=== PATIENT | male | born 1940 | race Caucasian/White ===

== ENCOUNTER 2017-08-28 09:28 | Emergency (ER) | payer MEDICARE ==
[2013-12-22 10:30] VITALS: BMI 27.1
[~2017-08-28 09:28] MED LIST: BAYER CHEWABLE81 MG PO; CELEXA20 MG PO; CLARITIN 10 MG10 MG PO; GLUCOPHAGE500 MG PO; MUCINEX1200 MG/BO PO; PLAVIX75 MG PO; PRILOSEC20 MG PO; REQUIP5 MG PO; SPIRIVA18 MCG INH; SYMBICORT 16010.2 GM INH; ULTRAM50 MG PO; WELLBUTRIN75 MG PO; ZOCOR40 MG PO
[2017-08-28 10:00] LABS: BASOPHILS 0.2 % (0-2); EOSINOPHILS 2.5 % (0-7); HEMATOCRIT 39.8 % (42.0-54.0); HEMOGLOBIN 13.3 g/dL (13.5-17.5); IMMATURE GRANULOCYTES 0.7 % (0-5); LYMPHOCYTES 7.7 % (15-50); MCH 30.1 pg (26.0-34.0); MCHC 33.4 g/dL (31.0-37.0); MEAN PLATELET VOLUME 8.6 fL (7.4-10.4); MONOCYTES 9.4 % (2-11); NEUTROPHILS 79.5 % (40-80); RBC 4.42 10x6/uL (4.20-6.10); RDW 13.4 % (11.5-14.5); WBC 13.7 10x3/uL (4.8-10.8)
[2017-08-28 10:01] LABS: PLATELET COUNT 303 10x3/uL (130-400)
[2017-08-28 10:14] LABS: ALBUMIN 2.4 g/dL (3.4-5.0); ALKALINE PHOSPHATASE 65 U/L (46-116); ALT (SGPT) 38 U/L (10-68); BILIRUBIN - TOTAL 0.57 mg/dL (0.2-1.3); CALC OSMOLALITY 267 mosm/kg (275-300); CALCIUM 8.4 mg/dL (8.5-10.1); CARBON DIOXIDE 25.8 mmol/L (21.0-32.0); CHLORIDE - SERUM 98 mmol/L (98-107); CREATININE - SERUM 0.9 mg/dL (0.6-1.3); GLUCOSE 108 mg/dL (74-106); POTASSIUM - SERUM 4.1 mmol/L (3.5-5.1); PROTEIN - SERUM 7.2 g/dL (6.4-8.2); SODIUM 132 mmol/L (136-145); UREA NITROGEN 18 mg/dL (7-18); eGFR NON AFRICAN AMERICAN 87 mL/min (90-120)
[2017-08-28 10:57] LABS: APPEARANCE HAZY (CLEAR); BACTERIA FEW /hpf (NONE SEEN); BILIRUBIN NEGATIVE (NEGATIVE); COLOR YELLOW (YELLOW); EPITHELIAL CELLS 0-5 /hpf (0-5); GLUCOSE NEGATIVE (NEGATIVE); KETONE NEGATIVE (NEGATIVE); MUCUS <1+ /lpf (NONE SEEN); NITRITE NEGATIVE (NEGATIVE); PROTEIN NEGATIVE (NEGATIVE); RED CELLS - URINE 25-50 /hpf (0-5); UROBILINOGEN NORMAL (NORMAL); WHITE CELLS - URINE 0-5 /hpf (0-5)
== END 2017-08-28 15:10 | disposition home or self-care (01) ==
LOC: D.ER 09:28
PROVIDERS: Emergency Medicine
DX: R10.9 Unspecified abdominal pain (principal); N39.0 Urinary tract infection, site not specified; N40.0 Benign prostatic hyperplasia without lower urinary tract symptoms; J44.9 Chronic obstructive pulmonary disease, unspecified; I10 Essential (primary) hypertension; F17.200 Nicotine dependence, unspecified, uncomplicated

== ENCOUNTER 2017-09-06 10:01 | Inpatient (IN) | payer MEDICARE ==
[2017-09-06] VITALS (11 sets, daily range): BP systolic 90–136; BP diastolic 34–88; BMI 23.2
[~2017-09-06] VITALS: Ht 167.6 cm; Wt 55.5 kg
--- NOTE | ~2017-09-06 | TEE ---
PATIENT:LINDSAY LI MEDICAL RECORD: [id number] LOCATION:D.M2 D.210 AGE OF PATIENT: 77 ADMISSION DATE: 09/06/17 SEX: M REFERRING PHYSICIAN: INTERPRETING PHYSICIAN: GIULIANO SALVADOR MD TRANSESOPHAGEAL ECHOCARDIOGRAM LAURENCE CHARGE Y INDICATIONS: ASSESS MASS IN RIGHT VENTRICLE PREMEDICATIONS: PATIENT'S RESPONSE PROCEDURE DOPPLER MEASUREMENTS: LVIT LA PA 105 RA LVOT 102 RVOT 67 Asc. Ao 127 AV Gradient Peak 6.42 AV Mean 3.337 AV Area 2.8 MV Gradient Peak 3.29 MV Mean 1.48 MV Area INTERPRETATION: Doppler: 2-D: MASS IS RV COLOR FLOW DOPPLER TRACE TR/TRACE/MILD AI NORMAL SALINE STUDY: MISCELLANOUS: DIAGNOSIS: PLAN: Stoker Installer:3 Dr. Padilla [employer] Crewmember: Lino VOGT COMMENTS: DATE OF SERVICE: 09/16/2017 PROCEDURE: Transesophageal note DESCRIPTION OF PROCEDURE: After general sedation via TIVA via anesthesia, transesophageal Omniplane probe was placed into the esophagus and proximal stomach without difficulty. FINDINGS: Normal LV wall thickness, wall motion. EF is greater than 55%. TRANSESOPHAGEAL ECHOCARDIOGRAM REPORT [id number] LINDSAY LI Aortic valve is tricuspid with adequate valve excursion. Mild AI by color flow imaging. Left atrium appears grossly of normal dimensions. Mitral valve appears normal with no prolapse. Mild MR. Right-sided chambers, right atrium appears of normal dimensions. Tricuspid valve appears normal with trivial TR. Note is made of a large pedunculated mass in RV apex with some areas that are freely mobile. TRANSINT:[id number] Voice Confirmation ID: [id number] DOCUMENT ID: [id number] at 1219 CC: [id number] DICTATION DATE: 09/16/17 1330 LIFE INSURANCE AGENT: 09/16/17 1421 ADM IN [place] [id number] [place] [address]
--- NOTE | ~2017-09-06 | EC ---
PATIENT:LINDSAY LI DATE OF SERVICE: 09/06/17 SEX: M MEDICAL RECORD: [id number] DATE OF : 38 LOCATION:D.M2 D.210 AGE OF PATIENT: 77 ADMISSION DATE: 09/06/17 REFERRING PHYSICIAN: INTERPRETING PHYSICIAN: GIULIANO SALVADOR MD ECHOCARDIOGRAM REPORT ECHO CHARGES 4 ECHO COMPLETE CLINICAL DIAGNOSIS: ELEVATED TROPONIN HX OF CAD/STENTS ECHOCARDIOGRAPHIC MEASUREMENTS (adult normal given) AC root (d.<3.7cm) 3.5 cm LV Septum d (<1.2 cm> 1.4 cm Valve Excursion 2.2 cm LV Septum (systole) 1.8 cm Left Atria (s.<4.0cm> 3.9 cm LVPW d(<1.2cm) 1.3 cm RV (d.<2.3cm) 3.0 cm LVPW (sytole) 1.7 cm LV diastole(<5.6CM) 5.0 cm MV E-F(>70mm/sec) cm LV systole 3.2 cm LVOT Diameter 2.1 cm MV exc.(>10mm) cm Est.ejection fraction (50-75%) % Pericardial Effusion N DOPPLER: LVIT cm/sec A 84.0 cm/sec E 69.0 cm/sec LA cm/sec RVSP 25 mmHg LVOT 102 cm/sec AOP1/2T 4.56 m/s Asc. Ao 127 cm/sec RVOT 67 cm/sec RA cm/sec PA 105 cm/sec AV Gradient Peak 6.42 mmHg AV Mean 3.337mmHg AV Area 2.8 cm MV Gradient Peak 3.29 mmHg MV Mean 1.48 mmHg MV Area cm COMMENTS: Learning And Development Coordinator: 2 BAKARI VOGT Hand Bulldozer: 3 Dr. Padilla TAPE# PACS DATE OF SERVICE: 09/07/2017 Adequate 2D echo, color flow and spectral Doppler, and M-mode. Borderline LVH. LV internal dimension is normal. Wall motion is normal. EF is greater than 55%. Aortic valve is tricuspid. No evidence of stenosis on Doppler interrogation. Left atrium is normal at 3.9 cm. Mitral valve shows no prolapse. Trace MR. Right-sided chamber is grossly normal. Trace TR. Large mass in the RV appears to be attached to the right ventricular septum and possibly the apex. This appears more tissue disease than clot, would recommend LAURENCE if clinically indicated. ECHOCARDIOGRAM REPORT [id number] LINDSAY LI TRANSINT:[id number] Voice Confirmation ID: [id number] DOCUMENT ID: [id number] 09/16/2017 Edited to correct date of service, dmm. GIULIANO SALVADOR MD at 1219 CC: [id number] DICTATION DATE: 09/08/17 112 SUPERINTENDENT TRANSPORTATION: 09/08/17 1131 ADM IN [place] [place] [address]
--- NOTE | ~2017-09-06 | CN ---
PATIENT NAME:LINDSAY LI MEDICAL RECORD: [id number] : 38 LOCATION:MISTYD.2301 ADMIT DATE: 09/06/17 ACCOUNT: [id number] CONSULTING PHYSICIAN: GIULIANO SALVADOR MD REFERRING PHYSICIAN: SIERRA ORTIZ MD DATE OF CONSULTATION: 09/07/2017 HISTORY OF PRESENT ILLNESS: A 77-year-old gentleman with a known history of coronary artery disease, status post intervention via Dr. De La Paz. He has a 2-week history of progressive dyspnea on exertion to the point of roshan rest symptomatology to the point he cannot go the restroom without getting short of breath. He was noted to have elevated cardiac enzymes as well, abnormal CT with diffuse infiltrates, possible pulmonary fibrosis as well as paraaortic and paratracheal lymphadenopathy. We are asked to see him concerning his cardiovascular status. PAST MEDICAL HISTORY: Includes: 1. History of obstructive pulmonary disease. 2. Coronary artery disease as described above. 3. Dyslipidemia. 4. Gastroesophageal reflux disease. MEDICATIONS: Include Prilosec 20 mg p.o. daily, Symbicort two puffs b.i.d., Wellbutrin 25 b.i.d., tramadol 50 t.i.d., Celexa 20 daily, aspirin 81 daily, simvastatin 40 daily, Plavix 75 daily. ALLERGIES: None known. SOCIAL HISTORY: He quit smoking over 20 years ago. Before current illness, he reports he was able to take care of his ADLs and walk frequently. REVIEW OF SYSTEMS: The patient reports easy bruising but reports no swollen glands. The patient reports no fever, no night sweats, no significant weight gain, no significant weight loss. No significant exercise tolerance. The patient reports no dry eyes, no irritation, no vision change. Patient reports no difficulty hearing and no ear pain. Patient reports no frequent nose bleeds or nose and sinus problems. Patient reports on arm pain on exertion. No shortness of breath while lying down. No history of heart murmur. Patient reports no cough, no wheezing or coughing up blood. Patient reports no abdominal pain, no vomiting. Normal appetite. No diarrhea and not vomiting blood. No nausea and no constipation. Patient reports no incontinence. No difficulty urinating. No hematuria. No increased frequency. Patient reports no muscle aches. No weakness, no arthralgias, no back pain. No swelling of the extremities. Patient reports no abnormal mole, no jaundice, no rashes. Reports no loss of consciousness. No weakness and no numbness. No seizures, dizziness, or headaches. The patient reports no depression, no sleep disturbance, feeling safe in a relationship and no alcohol abuse. Patient reports on fatigue. Reports no runny nose or sinus pressure. No itching, no hives, and no frequent sneezing. PHYSICAL EXAMINATION: GENERAL: Chronically ill looking gentleman, in no acute distress. VITAL SIGNS: Blood pressure 77/54, pulse 82 and regular. HEENT: Normocephalic, atraumatic. NECK: No bruits are noted. No JVD. CONSULT REPORT [id number] LINDSAY LI HEART: Regular, II/ systolic ejection murmur heard. LUNGS: Prolonged expiration phase with expiratory wheezes. ABDOMEN: Soft, nontender. EXTREMITIES: Pulses well preserved, 2+ with no edema. NEUROLOGIC: Grossly intact. Echocardiographic study is reviewed, mass is noted in the right ventricle, could be consistent with myxoma, but will need a LAURENCE at some point. In retrospect the patient does have some perhaps 15-20 pound weight loss over the past couple of months. May need to consider consultation for tissue diagnosis at some point. We will plan LAURENCE when pulmonary status improves. Thank you for the consultation. TRANSINT:[id number] Voice Confirmation ID: [id number] DOCUMENT ID: [id number] GIULIANO SALVADOR MD at 0817 CC: [id number] DICTATION DATE: 09/07/17 1201 CLINICAL RESEARCH TECH: 09/07/17 1402 ADM IN [place] [id number] [place] [address]
--- NOTE | ~2017-09-06 | HEMODYNAMI ---
PATIENT:LINDSAY LI MEDICAL RECORD: [id number] : 38 LOCATION:[facility] D.2101 ADMISSION DATE: 09/06/17 Generatedon:09/16/201714:02 Patient name: LINDSAY LI Patient #: [id number] SSN: : Date of study: 09/16/2017 Page: Of Hemodynamic Procedure Report Patient Data Patient Demographics Procedure consent was obtained First Name: LINDSAY Gender: Male Last Name: GUILLERMO : 1940 Patient #: [id number] Age: 77 year(s) Race: Unknown Additional ID: [id number] Contact details [address]: [address] [place] [address] State: [place] City: [place] Zip code: [address] Admission Admission Data Admission Date: 09/06/2017 Admission Time: 11:40 Arrival Date: 09/16/2017 Arrival Time: 11:04 Admit Source: Other Insurance Payor: Medicare Room #: D.2101 Height (in.): 66 BSA: 1.73 (m2) Height (cm.): 167.64 BMI: 22.92 (kg/m2) Weight (lbs.): 142 Weight (kg.): 64.41 Lab Results Lab Result Date: 09/16/2017 Lab Result Time: 0:00 Biochemistry Name Units Result Min Max BUN mg/dl 28 --(----)-* 7 18 Creatinine mg/dl 0.9 --(-*--)-- 0.6 1.3 CBC Name Units Result Min Max Hemoglobin g/dl 12.6 -*(----)-- 13.5 17.5 Procedure Procedure Types Cath Procedure Diagnostic Procedure LHC LHC w/Coronaries REAL Miscellaneous Procedures Moderate Sedation up to 45 minutes Procedure Description Procedure Date Procedure Date: 09/16/2017 Procedure Start Time: 13:40 Procedure End Time: 13:50 Procedure Staff Name Function Benoit Padilla MD Performing Physician Yaritza Begum RT Monitor Karley Porter RT Scrub Lia Thao RN Nurse Ashish Sarabia [employer] Supervisor Bernard Mcclure [facility] Additional personnel Procedure Data Cath Procedure Fluoroscopy Diagnostic fluoroscopy Total fluoroscopy Time: 1.1 time: 1.1 min min Diagnostic fluoroscopy Total fluoroscopy dose: 298 dose: 298 mGy mGy Contrast Material Contrast Material Type Amount (ml) Isovue 300 54 Entry Location Entry Primary Successful Side Size Upsize Upsize Entry Closure Succes sful Closure Location (Fr) 1 (Fr) 2 (Fr) Remarks Device Remarks Femoral Right 5 Fr Exoseal artery Estimated blood loss: 5 ml Diagnostic catheters Device Type Used For End Catheter Placement MULTIPACK JL 4.0 5Fr Left Coronary catheter Angiography MULTIPACK 3DRC 5Fr Right Coronary catheter Angiography MULTIPACK Pigtail 5 Fr LV Angiography catheter Procedure Complications No complications Procedure Medications Medication Administration Route Dosage Oxygen 15 l/min Refer to Anesthesia Notes for Sedation Medications Hurricaine [place] P.O. 1 Sprays Lidocaine 2% added to field 20 Heparin Flush Bag added to field 2 bags (1000units/500ml NS) 0.9% NaCl I.V. 100 ml/hr Hemodynamics Rest BSA: 1.73 (m2) HGB: 12.6 (g/dl) O2 Consumption: Estimated: 201.55 (ml/min) O2 Co nsumption indexed: Estimated:116.5 (ml/min/m) Heart Rate: 75 (bpm) Pressure Samples Time Site Value (mmHg) Purpose Heart Use Rate(bpm) 13:47 LV 85/-4,-1 Snapshot 96 Gradients Valve Time Site Site Mean SEP/DFP Peak To Heart Use 1 2 (mmHg) (sec/min) Peak Rate (mmHg) (bpm) Aortic 13:48 LV AO 90 Snapshots Pre Cath Intra NCS Post Cath Vital Signs Time Heart Resp SPO2 NIBP (mmHg) Rhythm Pain Sedation Rate (ipm) (%) Status Level (bpm) 12:52:49 75 11 97 123/65(90) NSR 0 (11) 10(A) , No pain 12:56:59 72 13 97 125/56(100) NSR 0 (11) 10(A) , No pain 13:01:07 76 23 98 129/62(106) NSR 0 (11) 10(A) , No pain 13:05:16 76 16 97 128/62(98) NSR 0 (11) 10(A) , No pain 13:09:28 74 16 96 126/60(100) NSR 0 (11) 10(A) , No pain 13:14:07 77 15 97 137/64(114) NSR 0 (11) 10(A) , No pain 13:18:19 77 16 98 135/66(110) NSR 0 (11) 9(A) , No pain 13:22:31 81 19 98 118/64(92) NSR 0 (11) 9(A) , No pain 13:26:41 75 16 99 101/49(77) NSR 0 (11) 9(A) , No pain 13:30:44 88 16 98 109/55(91) NSR 0 (11) 9(A) , No pain 13:34:48 91 16 97 109/58(81) NSR 0 (11) 9(A) , No pain 13:38:52 87 17 96 118/59(90) NSR 0 (11) 9(A) , No pain 13:43:04 86 17 97 99/46(70) NSR 0 (11) 9(A) , No pain 13:47:08 73 16 96 108/48(83) NSR 0 (11) 9(A) , No pain 13:51:11 94 17 97 94/59(81) NSR 0 (11) 9(A) , No pain 13:57:06 89 21 97 105/59(77) NSR 0 (11) 10(A) , No pain Medications Time Medication Route Dose Verified Delivered Reason Notes E ffectiveness by by 12:57:17 Oxygen NC- 15 Benoit Fitzgerald used for oxymizer l/min [facility] Edgard Thao RN procedure mask 12:57:25 Refer to Benoit Fitzgerald Anesthesia Notes St. Edgard Taho RN for Sedation MD Medications 13:17:50 Hurricaine [place] P.O. 1 Benoit Fitzgerald Per Sprays [facility]. Edgard Thao RN physician 13:34:54 Lidocaine 2% added to 20ml Benoit Laboy for local field vial [facility] anesthetic MD [place] 13:35:00 Heparin Flush added to 2 bags Benoit Laboy used for Bag field [facility] procedure (1000units/500ml MD [place] NS) 13:35:09 0.9% NaCl I.V. 100 Benoit Fitzgerald Per ml/hr [facility] Edgard Thao RN physician Procedure Log Time Note 12:18:50 Karley Porter RT(R) sent for patient. Start room use. 12:18:51 Time tracking: Regular hours 12:18:55 Plan of Care:Hemodynamics will remain stable., Cardiac rhythm will remain stable., Comfort level will be maintained., Respiratory function will remain adequate., Patient/ family verbilizes understanding of procedure., Procedure tolerated without complication., Recovers from procedure without complications.. 12:51:33 Patient received from Med II to CCL 2 Alert and oriented. Tansferred to table in Supine position. 12:51:34 Warm blankets applied, and marcia hugger turned on for patient comfort. 12:51:34 Correct patient and procedure confirmed by team. 12:51:36 Signed procedure consent form obtained from patient. 12:51:37 ECG and BP/O2 sat monitors applied to patient. 12:51:39 Vital chart was started 12:51:41 Baseline sample Acquired. 12:51:46 Rhythm: sinus rhythm 12:51:48 Full Disclosure recording started 12:51:58 H&P Date Dictated: 09/07/2017 Within 30 days and on chart., H&P Addendum completed by physician on day of procedure. (MUST COMPLETE FOR ALL OUTPATIENTS). 12:52:00 Pre-procedure instructions explained to patient. 12:52:01 Pre-op teaching completed and patient verbalized understanding. 12:52:03 Family in patients room. 12:52:05 Patient NPO since Midnight. 12:52:14 Is the patient allergic to Iodine/contrast media? No. 12:52:15 Was the patient premedicated? No 12:52:16 Is patient on blood thinner?No 12:52:18 Patient diabetic? No. 12:52:21 Previous problem with sedation/anesthesia? No ? 12:52:24 Snore? Yes 12:52:25 Sleep apnea? Yes 12:52:26 Deviated septum? No 12:52:27 Opens mouth fully? Yes 12:52:28 Sticks out tongue? Yes 12:53:18 Airway obstruction? Yes copd, emphysema, asthma, chronic bronchitis 12:53:21 Dentures? No ? 12:53:25 Pre procedure: right dorsailis pedis pulse 1+ Palpable, but thready & weak; easily obliterated 12:53:28 Pre procedure: left dorsailis pedis pulse 1+ Palpable, but thready & weak; easily obliterated 12:53:31 Patient pain scale 0/10 ?. 12:53:53 IV patent on arrival in right wrist with 0.9% NaCl at [facility]. 12:55:06 Lab Result : BUN 28 mg/dl 12:55:06 Lab Result : Hemoglobin 12.6 g/dl 12:55:06 Lab Result : Creatinine 0.9 mg/dl 12:55:25 Lab results completed and on chart. 12:55:42 Right groin area was prepped with chlora-prep and draped in sterile fashion 12:55:43 Alarms reviewed by R. N. 12:55:43 Sharps counted by scrub and verified by R.N. 12:56:26 Use device set Femoral Dx 12:56:27 ACIST Syringe (92341) opened to sterile field. 12:56:28 Bag Decanter (2002S) opened to sterile field. 12:56:29 Medline Cath Pack ([id number]) opened to sterile field. 12:56:29 SHEATH 5FR [place] (PBW722) opened to sterile field. 12:56:30 DIAGNOSTIC WIRE .035 260cm J wire ([id number]) opened to sterile field. 12:56:31 ACIST Hand Control (66841) opened to sterile field. 12:56:31 ACIST Manifold (73162) opened to sterile field. 12:56:32 DIAGNOSTIC Multipack 5Fr catheter set ([id number]) opened to sterile field. 12:56:33 Tegaderm 4 x 4 (1626W) opened to sterile field. 12:56:45 Admit Source: Other 12:56:48 Arrival Date: 09/16/2017 11:04:00 AM 12:57:02 Insurance Payor : Medicare 12:57:17 Oxygen 15 l/min NC- oxymizer mask was administered by Lia Thao RN; used for procedure; 12:57:25 Refer to Anesthesia Notes for Sedation Medications was administered by Lia Thao RN; ; 12:57:33 Patient Height : 66 inches 12:57:36 Patient Weight : 142 lbs 13:08:57 Bernard Mcclure Jr, CRNA present and monitoring patient for TIVA. 13:16:27 Physician arrived 13:16:28 --------ALL STOP TIME OUT------ 13:16:28 Final Timeout: patient, procedure, and site verified with staff and physician. All members of the team are in agreement. 13:16:30 Right groin site verified by team. 13:16:36 Physical assessment completed. ASA score P 2 - A patient with mild systemic disease as per Benoit Padilla MD. 13:16:39 Sedation plan: IV Moderate Sedation Medication:Versed, Fentanyl 13:17:43 Procedure started. 13:17:44 REAL started. 13:17:50 Hurricaine [place] 1 Sprays P.O. was administered by Lia Thao RN; Per physician; 13:25:36 REAL completed. 13:26:26 Real completed; patient transferred to bed for [facility] 13:34:54 Lidocaine 2% 20ml vial added to field was administered by Benoit Padilla MD; for local anesthetic; 13:35:00 Heparin Flush Bag (1000units/500ml NS) 2 bags added to field was administered by Benoit Padilla MD; used for procedure; 13:35:09 0.9% NaCl 100 ml/hr I.V. was administered by Lia Thao RN; Per physician; 13:38:04 Zero performed for pressure channel P1 13:40:48 Local anesthetic to right femoral artery with Lidocaine 2% by Benoit Padilla MD.INITIAL ACCESS ONLY 13:40:57 A 5 Fr sheath was inserted into the Right Femoral artery 13:41:52 A MULTIPACK JL 4.0 5Fr catheter was advanced over the wire and used for Left Coronary Angiography. 13:44:19 LCA angiography performed. 13:44:23 Injector settings: Ml/sec: 3, Volume: 6, 13:45:02 Catheter removed. 13:45:09 A MULTIPACK 3DRC 5Fr catheter was advanced over the wire and used for Right Coronary Angiography. 13:45:51 RCA angiography performed. 13:45:56 Injector settings: Ml/sec: 3, Volume: 6, 13:46:04 A MULTIPACK Pigtail 5 Fr catheter was advanced over the wire and used for LV Angiography. 13:46:59 Zero performed for pressure channel P1 13:47:03 Zero performed for pressure channel P1 13:47:09 Zero performed for pressure channel P1 13:47:19 Zero performed for pressure channel P1 13:47:30 Zero performed for pressure channel P1 13:47:52 LV hemodynamics recorded. 13:47:54 LV gram done using CAZARES 13:47:56 Injector settings: Ml/sec: 5, Volume: 15, 13:48:10 EF : 55 % 13:48:14 Catheter removed. 13:48:20 EXOSEAL 5Fr (EX500) opened to sterile field. 13:48:47 Sheath removed intact; hemostasis achieved with Exoseal to the Right Femoral artery. 13:48:49 Procedure ended.(Physican Out) 13:49:02 Fluoroscopy time 01.10 minutes. 13:49:06 Fluoroscopy dose: 298 mGy 13:49:06 Flurop Dose total: 298 13:50:00 Contrast amount:Isovue 300 54ml. 13:50:07 Sharps counted by scrub and verified by R.N. 13:50:10 Insertion/operative site no bleeding no hematoma. 13:50:13 Post-op/insertion site Right Femoral artery dressed using a 4 x 4 and Tegaderm. 13:50:15 Post right femoral artery:stable 13:50:17 Post Procedure Pulses reassessed and unchanged 13:50:19 Post procedure rhythm: unchanged. 13:50:22 Estimated blood loss: 5 ml 13:50:23 Post procedure instruction explained to patient.Patient verbalizes understanding. 13:50:23 Patient needs reinforcement of post procedure teaching. 13:50:40 Procedure type changed to Cath procedure, Diagnostic procedure, LHC, LHC w/Coronaries, REAL, Miscellaneous Procedures, Moderate Sedation up to 45 minutes 13:50:41 Procedure and supply charges have been captured, reviewed, submitted and are correct. 13:50:45 Procedure Complication : No complications 13:50:47 Vital chart was stopped 13:50:47 See physician's report for complete and final results. 13:50:54 Report given to Med II. 13:50:56 Patient transfered to Med II with Stretcher. 13:50:58 Procedure ended. 13:50:58 Full Disclosure recording stopped 13:51:01 End room use (Document Last) Device Usage Item Name Manufacture Quantity Catalog Hospital Part Current Minimal L ot# / Number Charge Number Stock Stock Serial# Code [place] [address] 94369 724063 [id number] 233906 20 Syringe Medical (51360) Systems Inc Bag Microtek 1 2001S 095358 59025 953774 5 Decanter Medical Inc. (2001S) Medline Cardinal 1 [id number] 122880 99237 062854 5 Cath Pack Health ([id number]) SHEATH 5FR Terumo 1 ZOV399 754055 345104 348439 40 [place] (OZV520) DIAGNOSTIC St Jm 1 202554 067750 414373 624430 30 WIRE .035 260cm J wire (486137) ACIST Hand Acist 1 05609 049253 333937 859543 5 Control Medical (42277) Systems Inc ACIST Acist 1 07796 470137 029857 981331 5 Manifold Medical (48687) Systems Inc DIAGNOSTIC Cardinal 1 MU6728 615327 78183 780121 30 Multipack Health 5Fr catheter set (GR0833) Tegaderm 4 3M 1 1626W 365238 187832 412427 5 x 4 (1626W) MULTIPACK Cardinal 1 397765 5 JL 4.0 5Fr Health catheter MULTIPACK Cardinal 1 746960 5 3DRC 5Fr Health catheter MULTIPACK Cardinal 1 341691 5 Pigtail 5 Health Fr catheter EXOSEAL 5Fr Cardinal 1 EX500 445180 363530 [id number] 10 (EX500) Health Signature Audit [place] Stage Time Signature Unsigned Intra-Procedure 09/16/2017 Yaritza Begum 2:01:56 PM RT(R) Signatures Monitor : Yaritza Begum RT Signature : Date : Time : [facility] [address] [place] [address]
--- NOTE | ~2017-09-06 | OP ---
PATIENT NAME: LINDSAY LI MEDICAL RECORD: [id number] :38 LOCATION:D.M2 D.2101 ADMISSION DATE:09/06/17 SURGEON: GIULIANO SALVADOR MD DATE OF OPERATION: 09/16/2017 PROCEDURES: Left heart catheterization, selective coronary angiography, right femoral artery approach. CATHETERS: A 5-Icelandic sheath, 5/4 left and right Oscar, 5/4 pig. The procedure was well tolerated. The patient returned to the nye, sheath removed. ExoSeal device was placed. FINDINGS: Left ventriculography in 30-degree CAZARES view: Normal wall motion, normal systolic function. CORONARY ANATOMY: LEFT MAIN: Left main is free of disease in the diagonal system. CIRCUMFLEX: Free of disease in the marginal system. RIGHT CORONARY ARTERY: Nondominant right, free of disease. IMPRESSION: Normal systolic function. Normal coronary anatomy. Widely patent stent. TRANSINT:[id number] Voice Confirmation ID: [id number] DOCUMENT ID: [id number] GIULIANO SALVADOR MD at 1219 CC: [id number] DICTATION DATE: 09/16/17 1352 AMUSEMENT OR RECREATION CARD CHECKER: 09/16/17 1439 ADM IN [facility] [address] [place] [address]
[2017-09-06 10:21] LABS: BASOPHILS 0.1 % (0-2); EOSINOPHILS 4.7 % (0-7); HEMOGLOBIN 12.6 g/dL (13.5-17.5); IMMATURE GRANULOCYTES 0.7 % (0-5); MCH 29.1 pg (26.0-34.0); MCHC 33.2 g/dL (31.0-37.0); MCV 87.8 fL (80.0-100.0); MEAN PLATELET VOLUME 8.6 fL (7.4-10.4); MONOCYTES 7.8 % (2-11); NEUTROPHILS 79.7 % (40-80); PLATELET COUNT 338 10x3/uL (130-400); RBC 4.33 10x6/uL (4.20-6.10); RDW 13.8 % (11.5-14.5); WBC 13.8 10x3/uL (4.8-10.8)
[2017-09-06 10:31] LABS: ALBUMIN 2.2 g/dL (3.4-5.0); ANION GAP 14.4 mmol/L (8-16); BILIRUBIN - TOTAL 0.46 mg/dL (0.2-1.3); CALCIUM 8.1 mg/dL (8.5-10.1); CARBON DIOXIDE 25.5 mmol/L (21.0-32.0); CREATININE - SERUM 1.1 mg/dL (0.6-1.3); POTASSIUM - SERUM 3.9 mmol/L (3.5-5.1); PROTEIN - SERUM 6.9 g/dL (6.4-8.2)
[2017-09-06 10:50] LABS: TROPONIN-I 0.129 ng/mL (0.000-0.060)
[2017-09-06 19:51] LABS: CKMB 3.5 U/L (0.0-3.6); CREATINE KINASE 76 UL (21-232)
[2017-09-06 20:48] LABS: APPEARANCE CLEAR (CLEAR); COLOR YELLOW (YELLOW)
[2017-09-06 20:49] LABS: BILIRUBIN NEGATIVE (NEGATIVE); GLUCOSE NEGATIVE (NEGATIVE); KETONE NEGATIVE (NEGATIVE); NITRITE NEGATIVE (NEGATIVE); PROTEIN NEGATIVE (NEGATIVE); UROBILINOGEN NORMAL (NORMAL)
[2017-09-06 20:55] LABS: RED CELLS - URINE 0-5 /hpf (0-5); WHITE CELLS - URINE 0-5 /hpf (0-5)
[2017-09-06 20:56] LABS: BACTERIA FEW /hpf (NONE SEEN)
[2017-09-06 22:30] LABS: CKMB 3.4 U/L (0.0-3.6); CREATINE KINASE 74 UL (21-232)
[2017-09-06 22:37] LABS: TROPONIN-I 0.088 ng/mL (0.000-0.060)
[2017-09-07] VITALS (23 sets, daily range): BP systolic 77–125; BP diastolic 39–74
[2017-09-07 06:14] LABS: BASOPHILS 0 % (0-2); EOSINOPHILS 0 % (0-7); HEMATOCRIT 35.7 % (42.0-54.0); HEMOGLOBIN 11.8 g/dL (13.5-17.5); IMMATURE GRANULOCYTES 0.5 % (0-5); LYMPHOCYTES 4.3 % (15-50); MCH 28.9 pg (26.0-34.0); MCHC 33.1 g/dL (31.0-37.0); MCV 87.5 fL (80.0-100.0); MONOCYTES 3.1 % (2-11); NEUTROPHILS 92.1 % (40-80); PLATELET COUNT 324 10x3/uL (130-400); RBC 4.08 10x6/uL (4.20-6.10); RDW 13.9 % (11.5-14.5)
[2017-09-07 06:19] LABS: WBC 9.6 10x3/uL (4.8-10.8)
[2017-09-07 06:50] LABS: CARBON DIOXIDE 25.7 mmol/L (21.0-32.0); CHLORIDE - SERUM 103 mmol/L (98-107); CKMB 3.1 U/L (0.0-3.6); CREATINE KINASE 86 UL (21-232); CREATININE - SERUM 1.2 mg/dL (0.6-1.3); POTASSIUM - SERUM 4.1 mmol/L (3.5-5.1); SODIUM 139 mmol/L (136-145); eGFR NON AFRICAN AMERICAN 62 mL/min (90-120)
[2017-09-07 06:54] LABS: CALC OSMOLALITY 284 mosm/kg (275-300); GLUCOSE 183 mg/dL (74-106); UREA NITROGEN 18 mg/dL (7-18)
[2017-09-07 06:55] LABS: TROPONIN-I 0.064 ng/mL (0.000-0.060)
[2017-09-08] VITALS (25 sets, daily range): BP systolic 115–142; BP diastolic 60–87; Ht 167.6 cm; Wt 55.5 kg
[2017-09-08 05:35] LABS: BASOPHILS 0 % (0-2); EOSINOPHILS 0 % (0-7); HEMATOCRIT 36.8 % (42.0-54.0); HEMOGLOBIN 12.1 g/dL (13.5-17.5); IMMATURE GRANULOCYTES 0.5 % (0-5); LYMPHOCYTES 2.5 % (15-50); MCH 28.9 pg (26.0-34.0); MCHC 32.9 g/dL (31.0-37.0); MCV 87.8 fL (80.0-100.0); MONOCYTES 4.4 % (2-11); NEUTROPHILS 92.6 % (40-80); PLATELET COUNT 295 10x3/uL (130-400); RBC 4.19 10x6/uL (4.20-6.10); WBC 16.1 10x3/uL (4.8-10.8)
[2017-09-08 05:53] LABS: ALBUMIN 2.1 g/dL (3.4-5.0); ALKALINE PHOSPHATASE 69 U/L (46-116); ALT (SGPT) 45 U/L (10-68); BILIRUBIN - TOTAL 0.38 mg/dL (0.2-1.3); CALC OSMOLALITY 282 mosm/kg (275-300); CALCIUM 7.8 mg/dL (8.5-10.1); CARBON DIOXIDE 23.2 mmol/L (21.0-32.0); CHLORIDE - SERUM 105 mmol/L (98-107); GLUCOSE 186 mg/dL (74-106); POTASSIUM - SERUM 3.8 mmol/L (3.5-5.1); PROTEIN - SERUM 6.5 g/dL (6.4-8.2); SODIUM 137 mmol/L (136-145); UREA NITROGEN 24 mg/dL (7-18); eGFR NON AFRICAN AMERICAN 77 mL/min (90-120)
[2017-09-09] VITALS (24 sets, daily range): BP systolic 107–149; BP diastolic 57–87
[2017-09-09 03:47] LABS: BASOPHILS 0 % (0-2); EOSINOPHILS 0 % (0-7); HEMATOCRIT 36.9 % (42.0-54.0); HEMOGLOBIN 12.3 g/dL (13.5-17.5); IMMATURE GRANULOCYTES 0.6 % (0-5); LYMPHOCYTES 2.9 % (15-50); MCH 29.4 pg (26.0-34.0); MCHC 33.3 g/dL (31.0-37.0); MCV 88.1 fL (80.0-100.0); MEAN PLATELET VOLUME 8.7 fL (7.4-10.4); MONOCYTES 8.4 % (2-11); NEUTROPHILS 88.1 % (40-80); RBC 4.19 10x6/uL (4.20-6.10); RDW 14.1 % (11.5-14.5); WBC 15.6 10x3/uL (4.8-10.8)
[2017-09-09 03:53] LABS: PLATELET COUNT 366 10x3/uL (130-400)
[2017-09-09 03:55] LABS: CALC OSMOLALITY 283 mosm/kg (275-300); CALCIUM 7.7 mg/dL (8.5-10.1); CARBON DIOXIDE 24.8 mmol/L (21.0-32.0); CHLORIDE - SERUM 106 mmol/L (98-107); CREATININE - SERUM 0.9 mg/dL (0.6-1.3); GLUCOSE 152 mg/dL (74-106); MAGNESIUM - SERUM 2.3 mg/dL (1.8-2.4); SODIUM 139 mmol/L (136-145); UREA NITROGEN 22 mg/dL (7-18); eGFR NON AFRICAN AMERICAN 87 mL/min (90-120)
[2017-09-09 08:19] LABS: IMMUNOGLOBULIN E 194 IU/mL (0-100)
[2017-09-09 09:16] LABS: IMMUNOGLOBULIN A 269 mg/dL (61-437); IMMUNOGLOBULIN G 1510 mg/dL (700-1600)
[2017-09-09 10:19] LABS: ANA REFLEX - DIRECT Negative (Negative)
[2017-09-09 18:09] LABS: AFB SPECIMEN PROCESSING Concentration (())
[2017-09-10] VITALS (24 sets, daily range): BP systolic 115–151; BP diastolic 49–102
[2017-09-10 04:38] LABS: BASOPHILS 0 % (0-2); EOSINOPHILS 0 % (0-7); HEMATOCRIT 36.9 % (42.0-54.0); HEMOGLOBIN 12.3 g/dL (13.5-17.5); IMMATURE GRANULOCYTES 0.8 % (0-5); LYMPHOCYTES 7.7 % (15-50); MCH 29.3 pg (26.0-34.0); MCHC 33.3 g/dL (31.0-37.0); MCV 87.9 fL (80.0-100.0); MEAN PLATELET VOLUME 8.7 fL (7.4-10.4); MONOCYTES 12.6 % (2-11); NEUTROPHILS 78.9 % (40-80); PLATELET COUNT 368 10x3/uL (130-400); RDW 13.8 % (11.5-14.5); WBC 14.5 10x3/uL (4.8-10.8)
[2017-09-10 04:53] LABS: CALC OSMOLALITY 274 mosm/kg (275-300); CALCIUM 8.1 mg/dL (8.5-10.1); CARBON DIOXIDE 25.2 mmol/L (21.0-32.0); CHLORIDE - SERUM 104 mmol/L (98-107); CREATININE - SERUM 0.9 mg/dL (0.6-1.3); GLUCOSE 124 mg/dL (74-106); MAGNESIUM - SERUM 2.2 mg/dL (1.8-2.4); POTASSIUM - SERUM 4.1 mmol/L (3.5-5.1); SODIUM 135 mmol/L (136-145); UREA NITROGEN 23 mg/dL (7-18); eGFR NON AFRICAN AMERICAN 87 mL/min (90-120)
[2017-09-10 06:14] LABS: ANGIOTENSIN CONVERTING ENZYME 27 U/L (14-82)
[2017-09-10 15:22] LABS: CRYPTOCOCCUS AG - SERUM Negative (Negative)
[2017-09-10 21:08] LABS: AFB SPECIMEN PROCESSING Concentration (())
[2017-09-10 22:08] LABS: MYCOPLASMA PNEUMO IGG 414 U/mL (0-99)
[2017-09-11] VITALS (17 sets, daily range): BP systolic 122–149; BP diastolic 59–75
[2017-09-11 05:02] LABS: ANION GAP 11.8 mmol/L (8-16); CARBON DIOXIDE 26.8 mmol/L (21.0-32.0); CREATININE - SERUM 1.8 mg/dL (0.6-1.3); POTASSIUM - SERUM 3.6 mmol/L (3.5-5.1)
[2017-09-11 05:19] LABS: BASOPHILS 0.1 % (0-2); EOSINOPHILS 0.1 % (0-7); HEMATOCRIT 38.1 % (42.0-54.0); HEMOGLOBIN 12.6 g/dL (13.5-17.5); IMMATURE GRANULOCYTES 0.8 % (0-5); LYMPHOCYTES 6.7 % (15-50); MCH 28.8 pg (26.0-34.0); MCHC 33.1 g/dL (31.0-37.0); MCV 87.2 fL (80.0-100.0); MEAN PLATELET VOLUME 8.7 fL (7.4-10.4); MONOCYTES 6.7 % (2-11); NEUTROPHILS 85.6 % (40-80); PLATELET COUNT 360 10x3/uL (130-400); RBC 4.37 10x6/uL (4.20-6.10); RDW 13.7 % (11.5-14.5); WBC 14.3 10x3/uL (4.8-10.8)
[2017-09-11 20:08] LABS: FUNGAL - ASP FLAVUS Negative (Neg:<1:1); FUNGAL - ASP NIGER Negative (Neg:<1:1); FUNGAL - ASPER FUMIGATUS Negative (Neg:<1:1)
[2017-09-12] VITALS (9 sets, daily range): BP systolic 114–148; BP diastolic 60–111
[2017-09-12 05:43] LABS: BASOPHILS 0.1 % (0-2); EOSINOPHILS 0 % (0-7); HEMATOCRIT 39.7 % (42.0-54.0); HEMOGLOBIN 13.1 g/dL (13.5-17.5); IMMATURE GRANULOCYTES 0.8 % (0-5); LYMPHOCYTES 4.4 % (15-50); MCV 87.8 fL (80.0-100.0); MEAN PLATELET VOLUME 8.8 fL (7.4-10.4); MONOCYTES 7.6 % (2-11); NEUTROPHILS 87.1 % (40-80); PLATELET COUNT 397 10x3/uL (130-400); RBC 4.52 10x6/uL (4.20-6.10); RDW 13.8 % (11.5-14.5); WBC 17.3 10x3/uL (4.8-10.8)
[2017-09-12 06:19] LABS: CALC OSMOLALITY 277 mosm/kg (275-300); CALCIUM 8.3 mg/dL (8.5-10.1); CHLORIDE - SERUM 102 mmol/L (98-107); CREATININE - SERUM 0.9 mg/dL (0.6-1.3); GLUCOSE 151 mg/dL (74-106); MAGNESIUM - SERUM 2.5 mg/dL (1.8-2.4); POTASSIUM - SERUM 4.4 mmol/L (3.5-5.1); SODIUM 135 mmol/L (136-145); UREA NITROGEN 27 mg/dL (7-18); eGFR NON AFRICAN AMERICAN 87 mL/min (90-120)
[2017-09-12 16:11] LABS: AFB SPECIMEN PROCESSING Concentration (())
[2017-09-13 00:52] VITALS: BP 108/59
[2017-09-13 05:21] VITALS: BP 119/59
[2017-09-13 07:16] LABS: CALC OSMOLALITY 278 mosm/kg (275-300); CALCIUM 8.4 mg/dL (8.5-10.1); CHLORIDE - SERUM 100 mmol/L (98-107); CREATININE - SERUM 0.9 mg/dL (0.6-1.3); GLUCOSE 145 mg/dL (74-106); MAGNESIUM - SERUM 2.5 mg/dL (1.8-2.4); POTASSIUM - SERUM 4.3 mmol/L (3.5-5.1); SODIUM 134 mmol/L (136-145); UREA NITROGEN 34 mg/dL (7-18); eGFR NON AFRICAN AMERICAN 87 mL/min (90-120)
[2017-09-13 07:30] LABS: HEMATOCRIT 41.7 % (42.0-54.0); HEMOGLOBIN 13.9 g/dL (13.5-17.5); MCHC 33.3 g/dL (31.0-37.0); MCV 87.1 fL (80.0-100.0); MEAN PLATELET VOLUME 9.1 fL (7.4-10.4); PLATELET COUNT 427 10x3/uL (130-400); RBC 4.79 10x6/uL (4.20-6.10); WBC 20.1 10x3/uL (4.8-10.8)
[2017-09-13 07:50] LABS: LYMPHOCYTES 6 % (15-50); MONOCYTES 1 % (2-11); NEUTROPHILS 92 % (40-80); PLATELET ESTIMATE NORMAL
[2017-09-13 08:00] VITALS: BP 118/56
[2017-09-13 12:00] VITALS: BP 113/59
[2017-09-13 14:12] LABS: HISTOPLASMA GAL MANNAN AG SER <0.5 (<0.5 ng/mL)
[2017-09-13 20:00] VITALS: BP 131/64
[2017-09-14] VITALS: BP 132/62
[2017-09-14 04:00] VITALS: BP 112/59
[2017-09-14 08:00] VITALS: BP 130/62
[2017-09-14 12:00] VITALS: BP 121/57
[2017-09-14 14:41] LABS: BASOPHILS 0.1 % (0-2); EOSINOPHILS 0 % (0-7); HEMATOCRIT 38.1 % (42.0-54.0); HEMOGLOBIN 12.4 g/dL (13.5-17.5); IMMATURE GRANULOCYTES 0.8 % (0-5); LYMPHOCYTES 3.8 % (15-50); MCH 28.6 pg (26.0-34.0); MCHC 32.5 g/dL (31.0-37.0); MCV 87.8 fL (80.0-100.0); MEAN PLATELET VOLUME 8.7 fL (7.4-10.4); MONOCYTES 8.9 % (2-11); NEUTROPHILS 86.4 % (40-80); PLATELET COUNT 346 10x3/uL (130-400); RBC 4.34 10x6/uL (4.20-6.10); WBC 17.8 10x3/uL (4.8-10.8)
[2017-09-14 15:05] LABS: CALC OSMOLALITY 281 mosm/kg (275-300); CALCIUM 8.2 mg/dL (8.5-10.1); CARBON DIOXIDE 25.6 mmol/L (21.0-32.0); CHLORIDE - SERUM 103 mmol/L (98-107); CREATININE - SERUM 0.9 mg/dL (0.6-1.3); GLUCOSE 154 mg/dL (74-106); POTASSIUM - SERUM 4.3 mmol/L (3.5-5.1); SODIUM 136 mmol/L (136-145); UREA NITROGEN 32 mg/dL (7-18); eGFR NON AFRICAN AMERICAN 87 mL/min (90-120)
[2017-09-14 16:00] VITALS: BP 121/58
[2017-09-15] VITALS: BP 112/69; BP 160/76
[2017-09-15 04:00] VITALS: BP 118/36
[2017-09-15 05:58] LABS: BASOPHILS 0 % (0-2); EOSINOPHILS 0 % (0-7); HEMATOCRIT 38.4 % (42.0-54.0); HEMOGLOBIN 12.6 g/dL (13.5-17.5); LYMPHOCYTES 6.2 % (15-50); MCH 28.9 pg (26.0-34.0); MCHC 32.8 g/dL (31.0-37.0); MCV 88.1 fL (80.0-100.0); MEAN PLATELET VOLUME 9.1 fL (7.4-10.4); MONOCYTES 10.9 % (2-11); NEUTROPHILS 81.9 % (40-80); PLATELET COUNT 347 10x3/uL (130-400); RBC 4.36 10x6/uL (4.20-6.10); WBC 22.1 10x3/uL (4.8-10.8)
[2017-09-15 06:22] LABS: CALC OSMOLALITY 276 mosm/kg (275-300); CALCIUM 8.4 mg/dL (8.5-10.1); CARBON DIOXIDE 25.8 mmol/L (21.0-32.0); CHLORIDE - SERUM 102 mmol/L (98-107); CREATININE - SERUM 0.8 mg/dL (0.6-1.3); GLUCOSE 119 mg/dL (74-106); POTASSIUM - SERUM 4.1 mmol/L (3.5-5.1); SODIUM 135 mmol/L (136-145); UREA NITROGEN 28 mg/dL (7-18); eGFR NON AFRICAN AMERICAN > 90 mL/min (90-120)
[2017-09-15 07:58] VITALS: BP 115/57
[2017-09-15 12:22] VITALS: BP 114/56
[2017-09-15 16:35] VITALS: BP 126/59
[2017-09-15 22:39] VITALS: BP 122/53
[2017-09-16 05:25] LABS: BASOPHILS 0 % (0-2); EOSINOPHILS 0 % (0-7); HEMATOCRIT 41.3 % (42.0-54.0); HEMOGLOBIN 13.6 g/dL (13.5-17.5); IMMATURE GRANULOCYTES 0.9 % (0-5); LYMPHOCYTES 3.1 % (15-50); MCH 29.1 pg (26.0-34.0); MCHC 32.9 g/dL (31.0-37.0); MCV 88.2 fL (80.0-100.0); MONOCYTES 3.1 % (2-11); NEUTROPHILS 92.9 % (40-80); PLATELET COUNT 358 10x3/uL (130-400); RBC 4.68 10x6/uL (4.20-6.10); RDW 14.2 % (11.5-14.5); WBC 21.3 10x3/uL (4.8-10.8)
[2017-09-16 05:31] LABS: CALC OSMOLALITY 275 mosm/kg (275-300); CALCIUM 8.6 mg/dL (8.5-10.1); CARBON DIOXIDE 28.4 mmol/L (21.0-32.0); CHLORIDE - SERUM 100 mmol/L (98-107); CREATININE - SERUM 0.9 mg/dL (0.6-1.3); GLUCOSE 136 mg/dL (74-106); POTASSIUM - SERUM 4.1 mmol/L (3.5-5.1); SODIUM 134 mmol/L (136-145); UREA NITROGEN 28 mg/dL (7-18); eGFR NON AFRICAN AMERICAN 87 mL/min (90-120)
[2017-09-16 06:16] VITALS: BP 106/61; BP 91/34
[2017-09-16 07:54] VITALS: BP 112/53
[2017-09-16 12:15] VITALS: BP 103/57
[2017-09-16 21:12] VITALS: BP 120/52
[2017-09-17 00:48] VITALS: BP 111/54
[2017-09-17 05:14] LABS: BASOPHILS 0 % (0-2); EOSINOPHILS 0 % (0-7); HEMATOCRIT 38.9 % (42.0-54.0); HEMOGLOBIN 12.8 g/dL (13.5-17.5); IMMATURE GRANULOCYTES 0.8 % (0-5); LYMPHOCYTES 1.5 % (15-50); MCHC 32.9 g/dL (31.0-37.0); MEAN PLATELET VOLUME 8.9 fL (7.4-10.4); MONOCYTES 3.1 % (2-11); NEUTROPHILS 94.6 % (40-80); PLATELET COUNT 292 10x3/uL (130-400); RBC 4.42 10x6/uL (4.20-6.10); RDW 14.3 % (11.5-14.5); WBC 23.9 10x3/uL (4.8-10.8)
[2017-09-17 05:31] LABS: CALC OSMOLALITY 270 mosm/kg (275-300); CALCIUM 8.2 mg/dL (8.5-10.1); CARBON DIOXIDE 26.1 mmol/L (21.0-32.0); CHLORIDE - SERUM 101 mmol/L (98-107); CREATININE - SERUM 0.8 mg/dL (0.6-1.3); SODIUM 130 mmol/L (136-145); UREA NITROGEN 23 mg/dL (7-18); eGFR NON AFRICAN AMERICAN > 90 mL/min (90-120)
[2017-09-17 05:32] LABS: GLUCOSE 209 mg/dL (74-106)
[2017-09-17 05:33] VITALS: BP 118/56
[2017-09-17 07:46] VITALS: BP 137/62
[2017-09-17 12:51] VITALS: BP 127/67
[2017-09-17 15:48] VITALS: BP 131/65
[2017-09-17 21:02] VITALS: BP 121/56
[2017-09-18 00:13] VITALS: BP 121/58
[2017-09-18 05:14] LABS: CALC OSMOLALITY 274 mosm/kg (275-300); CALCIUM 8.5 mg/dL (8.5-10.1); CARBON DIOXIDE 29.4 mmol/L (21.0-32.0); CHLORIDE - SERUM 101 mmol/L (98-107); CREATININE - SERUM 0.7 mg/dL (0.6-1.3); GLUCOSE 166 mg/dL (74-106); POTASSIUM - SERUM 4.2 mmol/L (3.5-5.1); SODIUM 134 mmol/L (136-145); UREA NITROGEN 22 mg/dL (7-18); eGFR NON AFRICAN AMERICAN > 90 mL/min (90-120)
[2017-09-18 05:16] LABS: BASOPHILS 0 % (0-2); EOSINOPHILS 0 % (0-7); HEMATOCRIT 38.8 % (42.0-54.0); HEMOGLOBIN 12.8 g/dL (13.5-17.5); IMMATURE GRANULOCYTES 0.8 % (0-5); LYMPHOCYTES 2.7 % (15-50); MCV 87.8 fL (80.0-100.0); MEAN PLATELET VOLUME 8.9 fL (7.4-10.4); MONOCYTES 3.8 % (2-11); NEUTROPHILS 92.7 % (40-80); PLATELET COUNT 286 10x3/uL (130-400); RBC 4.42 10x6/uL (4.20-6.10); RDW 14.2 % (11.5-14.5); WBC 23.8 10x3/uL (4.8-10.8)
[2017-09-18 08:14] VITALS: BP 112/52
[2017-09-18 12:09] VITALS: BP 129/64
[2017-09-18 16:05] VITALS: BP 124/59
[2017-09-18 20:18] VITALS: BP 127/61
[2017-09-19 00:27] VITALS: BP 95/51
[2017-09-19 04:50] VITALS: BP 111/55
[2017-09-19 06:03] LABS: BASOPHILS 0.1 % (0-2); EOSINOPHILS 0 % (0-7); HEMATOCRIT 40.6 % (42.0-54.0); HEMOGLOBIN 13.6 g/dL (13.5-17.5); IMMATURE GRANULOCYTES 1.3 % (0-5); LYMPHOCYTES 3.9 % (15-50); MCH 29.4 pg (26.0-34.0); MCHC 33.5 g/dL (31.0-37.0); MCV 87.7 fL (80.0-100.0); MONOCYTES 4.6 % (2-11); NEUTROPHILS 90.1 % (40-80); PLATELET COUNT 299 10x3/uL (130-400); RBC 4.63 10x6/uL (4.20-6.10); RDW 14.4 % (11.5-14.5); WBC 27.8 10x3/uL (4.8-10.8)
[2017-09-19 06:06] LABS: CALC OSMOLALITY 273 mosm/kg (275-300); CALCIUM 8.6 mg/dL (8.5-10.1); CARBON DIOXIDE 28.2 mmol/L (21.0-32.0); CHLORIDE - SERUM 97 mmol/L (98-107); CREATININE - SERUM 0.8 mg/dL (0.6-1.3); GLUCOSE 146 mg/dL (74-106); POTASSIUM - SERUM 4.3 mmol/L (3.5-5.1); SODIUM 133 mmol/L (136-145); UREA NITROGEN 26 mg/dL (7-18); eGFR NON AFRICAN AMERICAN > 90 mL/min (90-120)
[2017-09-19 08:32] VITALS: BP 130/57
[2017-09-19 12:05] VITALS: BP 134/75
[2017-09-19 21:16] VITALS: BP 128/63
[2017-09-20 00:23] VITALS: BP 110/56
[2017-09-20 05:21] VITALS: BP 125/63
[2017-09-20 08:30] VITALS: BP 118/52
[2017-09-20 11:47] VITALS: BP 114/69
[2017-09-20 16:50] VITALS: BP 133/63
[2017-09-20 20:00] VITALS: BP 128/61
[2017-09-21] VITALS: BP 108/60
[2017-09-21 04:00] VITALS: BP 123/60
[2017-09-21 05:09] LABS: BASOPHILS 0.1 % (0-2); EOSINOPHILS 0 % (0-7); HEMATOCRIT 43.1 % (42.0-54.0); HEMOGLOBIN 14.3 g/dL (13.5-17.5); LYMPHOCYTES 2.8 % (15-50); MCH 29.4 pg (26.0-34.0); MCHC 33.2 g/dL (31.0-37.0); MCV 88.7 fL (80.0-100.0); MEAN PLATELET VOLUME 9.5 fL (7.4-10.4); MONOCYTES 3.5 % (2-11); NEUTROPHILS 92.6 % (40-80); PLATELET COUNT 304 10x3/uL (130-400); RBC 4.86 10x6/uL (4.20-6.10); RDW 14.8 % (11.5-14.5); WBC 28.4 10x3/uL (4.8-10.8)
[2017-09-21 05:19] LABS: CALC OSMOLALITY 283 mosm/kg (275-300); CALCIUM 8.9 mg/dL (8.5-10.1); CARBON DIOXIDE 28.4 mmol/L (21.0-32.0); CHLORIDE - SERUM 99 mmol/L (98-107); GLUCOSE 179 mg/dL (74-106); POTASSIUM - SERUM 4.8 mmol/L (3.5-5.1); SODIUM 136 mmol/L (136-145); eGFR NON AFRICAN AMERICAN 77 mL/min (90-120)
[2017-09-21 05:27] LABS: UREA NITROGEN 35 mg/dL (7-18)
[2017-09-21 07:54] VITALS: BP 126/64
[2017-09-21 12:46] VITALS: BP 117/72
[2017-09-21 16:11] VITALS: BP 115/56
[2017-09-21 20:58] VITALS: BP 139/60
[2017-09-22 00:02] VITALS: BP 110/56
[2017-09-22 05:54] VITALS: BP 113/60
[2017-09-22 06:54] LABS: BASOPHILS 0 % (0-2); EOSINOPHILS 0 % (0-7); HEMATOCRIT 40.3 % (42.0-54.0); HEMOGLOBIN 13.4 g/dL (13.5-17.5); IMMATURE GRANULOCYTES 1.2 % (0-5); LYMPHOCYTES 3.3 % (15-50); MCH 29.3 pg (26.0-34.0); MCHC 33.3 g/dL (31.0-37.0); MCV 88.2 fL (80.0-100.0); MEAN PLATELET VOLUME 9.1 fL (7.4-10.4); MONOCYTES 5.2 % (2-11); NEUTROPHILS 90.3 % (40-80); PLATELET COUNT 258 10x3/uL (130-400); RBC 4.57 10x6/uL (4.20-6.10); RDW 14.9 % (11.5-14.5); WBC 28.7 10x3/uL (4.8-10.8)
[2017-09-22 06:58] LABS: CALC OSMOLALITY 281 mosm/kg (275-300); CALCIUM 8.4 mg/dL (8.5-10.1); CARBON DIOXIDE 26.5 mmol/L (21.0-32.0); CHLORIDE - SERUM 102 mmol/L (98-107); CREATININE - SERUM 0.8 mg/dL (0.6-1.3); GLUCOSE 143 mg/dL (74-106); POTASSIUM - SERUM 4.4 mmol/L (3.5-5.1); SODIUM 136 mmol/L (136-145); UREA NITROGEN 36 mg/dL (7-18); eGFR NON AFRICAN AMERICAN > 90 mL/min (90-120)
[2017-09-22 08:49] VITALS: BP 110/52
[2017-09-22 16:46] VITALS: BP 93/57
[2017-09-22 20:00] VITALS: BP 115/54
[2017-09-23 05:11] LABS: BASOPHILS 0 % (0-2); EOSINOPHILS 0 % (0-7); HEMATOCRIT 40.2 % (42.0-54.0); HEMOGLOBIN 13.1 g/dL (13.5-17.5); IMMATURE GRANULOCYTES 0.9 % (0-5); LYMPHOCYTES 2.3 % (15-50); MCHC 32.6 g/dL (31.0-37.0); MCV 89.1 fL (80.0-100.0); MEAN PLATELET VOLUME 9.2 fL (7.4-10.4); NEUTROPHILS 92.8 % (40-80); PLATELET COUNT 225 10x3/uL (130-400); RBC 4.51 10x6/uL (4.20-6.10); RDW 14.7 % (11.5-14.5); WBC 25.8 10x3/uL (4.8-10.8)
[2017-09-23 05:26] LABS: CALC OSMOLALITY 281 mosm/kg (275-300); CALCIUM 8.5 mg/dL (8.5-10.1); CHLORIDE - SERUM 101 mmol/L (98-107); CREATININE - SERUM 0.9 mg/dL (0.6-1.3); GLUCOSE 156 mg/dL (74-106); POTASSIUM - SERUM 4.5 mmol/L (3.5-5.1); SODIUM 135 mmol/L (136-145); UREA NITROGEN 37 mg/dL (7-18); eGFR NON AFRICAN AMERICAN 87 mL/min (90-120)
[2017-09-23 05:52] VITALS: BP 124/61
[2017-09-23 08:08] VITALS: BP 121/56
[2017-09-23 12:36] VITALS: BP 97/46
[2017-09-23 17:00] VITALS: BP 116/53
[2017-09-23 21:09] VITALS: BP 121/61
[2017-09-23 21:31] VITALS: BP 154/73
[2017-09-24 01:13] VITALS: BP 100/50
[2017-09-24 05:06] LABS: BASOPHILS 0 % (0-2); EOSINOPHILS 0 % (0-7); HEMATOCRIT 39.7 % (42.0-54.0); HEMOGLOBIN 13.2 g/dL (13.5-17.5); LYMPHOCYTES 2.8 % (15-50); MCH 29.3 pg (26.0-34.0); MCHC 33.2 g/dL (31.0-37.0); NEUTROPHILS 92.2 % (40-80); PLATELET COUNT 190 10x3/uL (130-400); RBC 4.51 10x6/uL (4.20-6.10); RDW 14.9 % (11.5-14.5); WBC 28.4 10x3/uL (4.8-10.8)
[2017-09-24 05:21] LABS: CALC OSMOLALITY 275 mosm/kg (275-300); CALCIUM 8.3 mg/dL (8.5-10.1); CARBON DIOXIDE 28.3 mmol/L (21.0-32.0); CHLORIDE - SERUM 99 mmol/L (98-107); CREATININE - SERUM 0.7 mg/dL (0.6-1.3); GLUCOSE 138 mg/dL (74-106); POTASSIUM - SERUM 4.2 mmol/L (3.5-5.1); SODIUM 133 mmol/L (136-145); UREA NITROGEN 34 mg/dL (7-18); eGFR NON AFRICAN AMERICAN > 90 mL/min (90-120)
[2017-09-24 05:36] VITALS: BP 121/55
[2017-09-24 08:00] VITALS: BP 129/62
[2017-09-24 12:00] VITALS: BP 119/54
[2017-09-24 16:00] VITALS: BP 138/56
[2017-09-25 03:54] VITALS: BP 86/52
[2017-09-25 06:19] LABS: HEMATOCRIT 39.9 % (42.0-54.0); MCHC 32.6 g/dL (31.0-37.0); MCV 89.1 fL (80.0-100.0); MEAN PLATELET VOLUME 9.3 fL (7.4-10.4); PLATELET COUNT 200 10x3/uL (130-400); RBC 4.48 10x6/uL (4.20-6.10); RDW 15.2 % (11.5-14.5); WBC 26.8 10x3/uL (4.8-10.8)
[2017-09-25 06:24] LABS: CALC OSMOLALITY 273 mosm/kg (275-300); CALCIUM 8.3 mg/dL (8.5-10.1); CARBON DIOXIDE 27.7 mmol/L (21.0-32.0); CHLORIDE - SERUM 98 mmol/L (98-107); CREATININE - SERUM 0.8 mg/dL (0.6-1.3); GLUCOSE 125 mg/dL (74-106); SODIUM 132 mmol/L (136-145); UREA NITROGEN 34 mg/dL (7-18); eGFR NON AFRICAN AMERICAN > 90 mL/min (90-120)
[2017-09-25 07:40] LABS: EOSINOPHILS 4 % (0-7); LYMPHOCYTES 1 % (15-50); MONOCYTES 1 % (2-11); NEUTROPHILS 94 % (40-80); PLATELET ESTIMATE NORMAL
[2017-09-25 08:30] VITALS: BP 111/51
[2017-09-25 12:06] VITALS: BP 106/49
[2017-09-25 16:06] VITALS: BP 111/57
[2017-09-25 21:25] VITALS: BP 116/59
[2017-09-26 00:36] VITALS: BP 101/52
[2017-09-26 04:45] VITALS: BP 103/55
[2017-09-26 08:05] VITALS: BP 108/54
[2017-09-26 11:06] LABS: BASOPHILS 0 % (0-2); EOSINOPHILS 0 % (0-7); HEMATOCRIT 37.9 % (42.0-54.0); HEMOGLOBIN 12.5 g/dL (13.5-17.5); LYMPHOCYTES 3.5 % (15-50); MCH 29.2 pg (26.0-34.0); MCV 88.6 fL (80.0-100.0); MEAN PLATELET VOLUME 9.2 fL (7.4-10.4); MONOCYTES 4.8 % (2-11); NEUTROPHILS 90.7 % (40-80); PLATELET COUNT 165 10x3/uL (130-400); RBC 4.28 10x6/uL (4.20-6.10); RDW 15.2 % (11.5-14.5); WBC 23.6 10x3/uL (4.8-10.8)
[2017-09-26 11:22] LABS: CALC OSMOLALITY 277 mosm/kg (275-300); CALCIUM 8.5 mg/dL (8.5-10.1); CARBON DIOXIDE 28.9 mmol/L (21.0-32.0); CHLORIDE - SERUM 97 mmol/L (98-107); GLUCOSE 162 mg/dL (74-106); POTASSIUM - SERUM 4.2 mmol/L (3.5-5.1); SODIUM 133 mmol/L (136-145); UREA NITROGEN 36 mg/dL (7-18); eGFR NON AFRICAN AMERICAN 77 mL/min (90-120)
[2017-09-26 12:10] VITALS: BP 119/51
[2017-09-26 15:01] VITALS: BP 116/53
[2017-09-26 21:11] VITALS: BP 110/49
[2017-09-27 01:27] VITALS: BP 100/48
[2017-09-27 05:08] VITALS: BP 102/56
[2017-09-27 07:54] VITALS: BP 113/63
[2017-09-27 12:33] VITALS: BP 102/47
[2017-09-27 16:10] VITALS: BP 102/33
[2017-09-27 20:58] VITALS: BP 105/52
[2017-09-28 05:19] VITALS: BP 107/52
[2017-09-28 07:20] LABS: BASOPHILS 0 % (0-2); EOSINOPHILS 0 % (0-7); HEMATOCRIT 36.9 % (42.0-54.0); HEMOGLOBIN 11.9 g/dL (13.5-17.5); IMMATURE GRANULOCYTES 0.9 % (0-5); LYMPHOCYTES 4.6 % (15-50); MCH 28.6 pg (26.0-34.0); MCHC 32.2 g/dL (31.0-37.0); MCV 88.7 fL (80.0-100.0); MEAN PLATELET VOLUME 9.6 fL (7.4-10.4); MONOCYTES 2.8 % (2-11); NEUTROPHILS 91.7 % (40-80); PLATELET COUNT 198 10x3/uL (130-400); RBC 4.16 10x6/uL (4.20-6.10); RDW 15.5 % (11.5-14.5); WBC 20.5 10x3/uL (4.8-10.8)
[2017-09-28 07:24] LABS: CALC OSMOLALITY 279 mosm/kg (275-300); CALCIUM 8.2 mg/dL (8.5-10.1); CARBON DIOXIDE 26.4 mmol/L (21.0-32.0); CHLORIDE - SERUM 99 mmol/L (98-107); CREATININE - SERUM 0.8 mg/dL (0.6-1.3); GLUCOSE 156 mg/dL (74-106); POTASSIUM - SERUM 4.1 mmol/L (3.5-5.1); SODIUM 135 mmol/L (136-145); UREA NITROGEN 31 mg/dL (7-18); eGFR NON AFRICAN AMERICAN > 90 mL/min (90-120)
[2017-09-28 12:25] VITALS: BP 105/61
[2017-09-28 16:18] VITALS: BP 106/53
[2017-09-28 20:50] VITALS: BP 95/49
[2017-09-29 01:45] VITALS: BP 102/46
[2017-09-29 06:22] LABS: BASOPHILS 0 % (0-2); EOSINOPHILS 0.1 % (0-7); HEMATOCRIT 33.5 % (42.0-54.0); HEMOGLOBIN 10.9 g/dL (13.5-17.5); IMMATURE GRANULOCYTES 0.6 % (0-5); LYMPHOCYTES 4.1 % (15-50); MCH 28.9 pg (26.0-34.0); MCHC 32.5 g/dL (31.0-37.0); MCV 88.9 fL (80.0-100.0); MEAN PLATELET VOLUME 9.4 fL (7.4-10.4); NEUTROPHILS 92.2 % (40-80); PLATELET COUNT 218 10x3/uL (130-400); RBC 3.77 10x6/uL (4.20-6.10); RDW 15.5 % (11.5-14.5)
[2017-09-29 06:31] LABS: CALC OSMOLALITY 270 mosm/kg (275-300); CALCIUM 8.2 mg/dL (8.5-10.1); CARBON DIOXIDE 26.7 mmol/L (21.0-32.0); CHLORIDE - SERUM 98 mmol/L (98-107); CREATININE - SERUM 0.6 mg/dL (0.6-1.3); GLUCOSE 142 mg/dL (74-106); SODIUM 131 mmol/L (136-145); UREA NITROGEN 29 mg/dL (7-18); eGFR NON AFRICAN AMERICAN > 90 mL/min (90-120)
[2017-09-29 07:01] VITALS: BP 115/42
[2017-09-29 09:25] VITALS: BP 101/40
[2017-09-29 12:43] VITALS: BP 108/59
[2017-09-29 17:32] VITALS: BP 106/60
[2017-09-29 20:00] VITALS: BP 98/54
[2017-09-30] VITALS: BP 103/56
[2017-09-30 04:00] VITALS: BP 106/55
[2017-09-30 05:33] LABS: BASOPHILS 0 % (0-2); EOSINOPHILS 0 % (0-7); HEMATOCRIT 32.2 % (42.0-54.0); HEMOGLOBIN 10.6 g/dL (13.5-17.5); IMMATURE GRANULOCYTES 0.8 % (0-5); LYMPHOCYTES 3.3 % (15-50); MCHC 32.9 g/dL (31.0-37.0); MEAN PLATELET VOLUME 9.2 fL (7.4-10.4); MONOCYTES 3.9 % (2-11); PLATELET COUNT 241 10x3/uL (130-400); RBC 3.66 10x6/uL (4.20-6.10); RDW 15.4 % (11.5-14.5); WBC 17.4 10x3/uL (4.8-10.8)
[2017-09-30 07:27] LABS: CALC OSMOLALITY 273 mosm/kg (275-300); CALCIUM 8.4 mg/dL (8.5-10.1); CARBON DIOXIDE 26.7 mmol/L (21.0-32.0); CHLORIDE - SERUM 98 mmol/L (98-107); CREATININE - SERUM 0.5 mg/dL (0.6-1.3); GLUCOSE 150 mg/dL (74-106); POTASSIUM - SERUM 3.9 mmol/L (3.5-5.1); SODIUM 133 mmol/L (136-145); UREA NITROGEN 26 mg/dL (7-18); eGFR NON AFRICAN AMERICAN > 90 mL/min (90-120)
[2017-09-30 10:18] VITALS: BP 114/64
[2017-09-30 17:37] VITALS: BP 105/48
[2017-09-30 17:51] VITALS: BP 109/50
[2017-09-30 19:37] LABS: APPEARANCE CLOUDY (CLEAR); BILIRUBIN NEGATIVE (NEGATIVE); COLOR DK YELLOW (YELLOW); GLUCOSE NEGATIVE (NEGATIVE); KETONE NEGATIVE (NEGATIVE); NITRITE NEGATIVE (NEGATIVE); PROTEIN TRACE mg/dL (NEGATIVE)
[2017-09-30 19:39] LABS: BACTERIA MODERATE /hpf (NONE SEEN); EPITHELIAL CELLS 0-5 /hpf (0-5); MUCUS <1+ /lpf (NONE SEEN); RED CELLS - URINE >50 /hpf (0-5)
[2017-09-30 22:33] VITALS: BP 113/51
[2017-10-01 04:40] VITALS: BP 113/51
[2017-10-01 05:38] LABS: BASOPHILS 0 % (0-2); EOSINOPHILS 0.1 % (0-7); HEMATOCRIT 33.9 % (42.0-54.0); HEMOGLOBIN 11.4 g/dL (13.5-17.5); IMMATURE GRANULOCYTES 0.9 % (0-5); LYMPHOCYTES 6.1 % (15-50); MCH 29.4 pg (26.0-34.0); MCHC 33.6 g/dL (31.0-37.0); MCV 87.4 fL (80.0-100.0); MONOCYTES 3.6 % (2-11); NEUTROPHILS 89.3 % (40-80); PLATELET COUNT 253 10x3/uL (130-400); RBC 3.88 10x6/uL (4.20-6.10); RDW 15.4 % (11.5-14.5); WBC 15.1 10x3/uL (4.8-10.8)
[2017-10-01 05:53] LABS: CALC OSMOLALITY 265 mosm/kg (275-300); CALCIUM 8.1 mg/dL (8.5-10.1); CARBON DIOXIDE 27.7 mmol/L (21.0-32.0); CHLORIDE - SERUM 98 mmol/L (98-107); CREATININE - SERUM 0.6 mg/dL (0.6-1.3); GLUCOSE 105 mg/dL (74-106); POTASSIUM - SERUM 3.7 mmol/L (3.5-5.1); SODIUM 131 mmol/L (136-145); UREA NITROGEN 22 mg/dL (7-18); eGFR NON AFRICAN AMERICAN > 90 mL/min (90-120)
[2017-10-01 07:57] VITALS: BP 101/34
[2017-10-01 11:19] VITALS: BP 101/52
[2017-10-01] MEDS ORDERED: PREDNISONE10 MG PO (12:01)
[2017-10-01 15:54] VITALS: BP 101/047
[2017-10-01] MEDS ORDERED: FLOMAX0.4 MG PO (17:25)
[2017-10-24 16:14] LABS: ACID FAST CULTURE Negative (()); ACID FAST SMEAR Negative (())
[2017-10-29 11:18] LABS: ACID FAST CULTURE Negative (()); ACID FAST SMEAR Negative (())
[2017-10-29 11:18] LABS: ACID FAST CULTURE Negative (()); ACID FAST SMEAR Negative (())
== END 2017-10-01 19:29 | disposition home health service (06) | DRG 177 ==
LOC: D.ER 10:01 → D.ICU 11:40 → D.M2 11:40 → D.ICU 12:28 → D.M2 09-12 16:42
PROVIDERS: Emergency Medicine; Family Medicine; Internal Medicine Interventional Cardiology; Internal Medicine Nephrology; Internal Medicine Pulmonary Disease; Student in an Organized Health Care Education/Training Program
PROC: 4A023N7 Measurement of Cardiac Sampling and Pressure, Left Heart, Percutaneous Approach (ICD-10-PCS; 2017-09-16)
PROC: B2111ZZ Fluoroscopy of Multiple Coronary Arteries using Low Osmolar Contrast (ICD-10-PCS; principal; 2017-09-16 11:30)
PROC: B2151ZZ Fluoroscopy of Left Heart using Low Osmolar Contrast (ICD-10-PCS; 2017-09-16 11:30)
DX: J15.6 Pneumonia due to other Gram-negative bacteria (principal); J96.21 Acute and chronic respiratory failure with hypoxia; J44.1 Chronic obstructive pulmonary disease with (acute) exacerbation; J44.0 Chronic obstructive pulmonary disease with (acute) lower respiratory infection; J84.9 Interstitial pulmonary disease, unspecified; N17.9 Acute kidney failure, unspecified; J15.212 Pneumonia due to Methicillin resistant Staphylococcus aureus; E78.5 Hyperlipidemia, unspecified; K21.9 Gastro-esophageal reflux disease without esophagitis; I25.10 Atherosclerotic heart disease of native coronary artery without angina pectoris; Z95.5 Presence of coronary angioplasty implant and graft; D64.9 Anemia, unspecified; K59.00 Constipation, unspecified; I51.89 Other ill-defined heart diseases; Z87.891 Personal history of nicotine dependence

== ENCOUNTER → 2017-10-09 15:33 | Outpatient (CLI) | payer MEDICARE ==
[2017-09-08 18:10] VITALS: BMI 23.4
[~2017-10-09 15:33] MED LIST changes: +FLOMAX0.4 MG PO; +PREDNISONE10 MG PO
[2017-10-09 18:51] LABS: BASOPHILS 0.1 % (0-2); EOSINOPHILS 0.6 % (0-7); HEMATOCRIT 29.5 % (42.0-54.0); HEMOGLOBIN 9.5 g/dL (13.5-17.5); IMMATURE GRANULOCYTES 0.8 % (0-5); LYMPHOCYTES 8.1 % (15-50); MCH 28.4 pg (26.0-34.0); MCHC 32.2 g/dL (31.0-37.0); MCV 88.1 fL (80.0-100.0); MEAN PLATELET VOLUME 8.8 fL (7.4-10.4); MONOCYTES 4.4 % (2-11); PLATELET COUNT 270 10x3/uL (130-400); RBC 3.35 10x6/uL (4.20-6.10); RDW 16.3 % (11.5-14.5); WBC 15.8 10x3/uL (4.8-10.8)
[2017-10-09 19:28] LABS: ALBUMIN 1.4 g/dL (3.4-5.0); ALKALINE PHOSPHATASE 71 U/L (46-116); ALT (SGPT) 110 U/L (10-68); BILIRUBIN - TOTAL 0.56 mg/dL (0.2-1.3); CALC OSMOLALITY 249 mosm/kg (275-300); CALCIUM 7.3 mg/dL (8.5-10.1); CARBON DIOXIDE 28.7 mmol/L (21.0-32.0); CHLORIDE - SERUM 91 mmol/L (98-107); CREATININE - SERUM 0.7 mg/dL (0.6-1.3); GLUCOSE 79 mg/dL (74-106); POTASSIUM - SERUM 3.3 mmol/L (3.5-5.1); PRO BNP 357 pg/mL (0-450); PROTEIN - SERUM 5.2 g/dL (6.4-8.2); SODIUM 124 mmol/L (136-145); UREA NITROGEN 16 mg/dL (7-18); eGFR NON AFRICAN AMERICAN > 90 mL/min (90-120)
== END | disposition home or self-care (01) ==
LOC: D.LABREF 15:33
PROVIDERS: Family Medicine
DX: I25.10 Atherosclerotic heart disease of native coronary artery without angina pectoris (principal); J43.9 Emphysema, unspecified